=== PATIENT | female | born 1970 | race African-American/Black ===

== ENCOUNTER → 2019-11-03 | Outpatient (CLI) | payer OTHER ==
[~2019-11-03] MED LIST: BACTRIM DS TAB1 EACH PO; FLAGYL500 MG PO; MACROBID 100 M100 M1 PO; MECLIZINE 25 MG25 M1 PO; TIZANIDINE HCL4 MG PO
== END ==
LOC: RAD 11:13
PROVIDERS: ATTEND Internal Medicine Rheumatology
DX: M25.551 Pain in right hip (principal); M79.604 Pain in right leg

== ENCOUNTER → 2019-12-21 | Outpatient (CLI) | payer OTHER | LOC: MRI 10:38 | PROVIDERS: ATTEND Internal Medicine Rheumatology | DX: M47.26 Other spondylosis with radiculopathy, lumbar region (principal) ==